=== PATIENT | female | born 1960 | race African-American/Black ===

== ENCOUNTER 2021-08-11 10:36 | Emergency (ER) | payer MEDICAID, OTHER ==
[~2021-08-11] VITALS: Ht 154.9 cm; Wt 102.0 kg
[2021-08-11 11:41] VITALS: BP 112/66
[2021-08-11] MEDS ORDERED: TOPUD PO (12:31)
== END 2021-08-11 13:14 | disposition home or self-care (01) ==
LOC: ER 11:18
DX: R51.9 Headache, unspecified (principal)
CPT/HCPCS: 99284

== ENCOUNTER 2022-10-17 09:36 | Emergency (ER) | payer MEDICAID, OTHER ==
[~2022-10-17] VITALS: Ht 154.9 cm; Wt 117.0 kg
[~2022-10-17 09:36] MED LIST: TOPUD PO
[2022-10-17 09:37] VITALS: BP 138/97
== END 2022-10-17 12:37 | disposition home or self-care (01) ==
LOC: ER 09:36
DX: N63.0 Unspecified lump in unspecified breast (principal)
CPT/HCPCS: 76642; 99284